=== PATIENT | female | born 1980 | race Caucasian/White ===

== ENCOUNTER 2025-07-16 14:09 | Outpatient (CLI) | payer OTHER, SELFPAY | END 2025-07-16 14:10 | disposition home or self-care (01) | PROVIDERS: Visit Provider Registered Nurse | DX: F52.0 Hypoactive sexual desire disorder (principal); D64.9 Anemia, unspecified; R53.83 Other fatigue | CPT/HCPCS: 82306; 82728; 83540; 83550; 84270; 84402; 84403; 84443 ==